=== PATIENT | female | born 1950 | race Caucasian/White ===

== ENCOUNTER 2017-01-04 07:46 | Day surgery (SDC) | payer MEDICARE, OTHER ==
[~2017-01-04 07:46] MED LIST: Lactated Ringers 1,000 ML IV SCH
[2017-01-04] MEDS ORDERED: Midazolam 1 MG/ML 2 ML SDV ONE (08:30)
[2017-01-04] MEDS ORDERED: fentaNYL 100 MCG/2 ML SDV ONE (08:30)
[2017-01-04] MEDS ORDERED: Propofol 200 MG/20 ML SDV ONE (08:30)
--- NOTE | 2017-01-04 10:57 | OR ---
DATE OF SURGERY: 01/04/2017. REFERRING PROVIDER: Adriana Gamble PA-C. PREOPERATIVE DIAGNOSES: Recent diverticulitis on 11/27/2016. CT scan showed a narrowed sigmoid colon. The patient's last colonoscopy in 2012 was normal. This was done in [place], [place]. POSTOPERATIVE DIAGNOSES: 1. Total of 4 polyps removed. a. 2 mm x2 at 40 cm, both removed with cold forceps. b. 2 mm polyp at 30 cm removed with cold forceps. c. 10 mm polyp at 20 cm removed with hot snare. 2. Moderate left-sided diverticulosis without any evidence of inflammation or bleeding. 3. Tortuous colon. PROCEDURE: Colonoscopy with polypectomy x4 (1 using hot snare and 3 using cold forceps) SURGEON: Navarro Zhao M.D. ANESTHESIA: Monitored anesthesia care. BOWEL PREP: GoodLupillo Herrmann is a 66-year-old female was brought to the endoscopy suite after discussing risks and benefits of the procedure. Informed consent was obtained for conscious sedation and colonoscopy with or without biopsy and/or polypectomy. We also discussed possibility of missed lesions. Pre-procedure exam was unremarkable. IV, oxygen, and monitors were placed. The patient was placed in the left lateral decubitus position. Sedation was administered and a digital rectal exam was performed which was unremarkable. Colonoscope was passed into the rectum and slowly advanced all the way to the cecum. Cecum was viewed and photographed. The colonoscope was slowly withdrawn and the mucosa was closed observed in a direct circumferential manner. The ascending colon was unremarkable. The transverse colon was unremarkable. The descending colon did reveal 2 mm polyp x2 at 40 cm. Both removed with cold forceps. The descending and sigmoid colon also revealed some moderate left diverticulosis without any evidence of inflammation. The sigmoid colon was also remarkable for 2 mm polyp at 30 cm removed with cold forceps as well as a 10 mm polyp at 20 cm removed with hot snare. Retroflexion was performed and rectal mucosa was unremarkable. Scope was removed. The patient tolerated the procedure well. The patient was monitored until that baseline status. Discharge instructions were reviewed and the patient was discharged in good condition. COMPLICATIONS: None. TOTAL TIME: 30 minutes. ESTIMATED BLOOD LOSS: About 1 mL. RECOMMENDATIONS/FOLLOW-UP: We will await results of path report to determine ideal followup interval. I would like to kindly thank Adriana Gamble for this referral. DMB: 01/04/2017 10:24:30 MODL: 01/04/2017 10:48:26 /[id number]
[2017-01-04 11:44] VITALS: BP 142/79
== END 2017-01-04 12:00 | disposition home or self-care (01) ==
LOC: VM.SDS 07:46
PROVIDERS: ATTEND Family Medicine
DX: K63.5 Polyp of colon (principal); K57.30 Diverticulosis of large intestine without perforation or abscess without bleeding; I10 Essential (primary) hypertension; E78.00 Pure hypercholesterolemia, unspecified; E03.9 Hypothyroidism, unspecified; Z79.899 Other long term (current) drug therapy; Z98.890 Other specified postprocedural states
CPT/HCPCS: 00810; 45380; 45385; J2250; J2704; J3010; J7120; 88305